=== PATIENT | female | born 1995 | race Two or more races ===

== ENCOUNTER → 2016-09-21 | Outpatient (CLI) | payer MEDICAID | END | disposition home or self-care (01) | LOC: LAB 10:31 | PROVIDERS: ATTEND Specialist | DX: N39.0 Urinary tract infection, site not specified (principal); Z34.00 Encounter for supervision of normal first pregnancy, unspecified trimester; O74.6 Other complications of spinal and epidural anesthesia during labor and delivery | CPT/HCPCS: 86762; 87086; G0434 ==

== ENCOUNTER 2019-01-31 22:33 | Emergency (ER) | payer MEDICAID ==
[~2019-01-31] VITALS: Ht 170.2 cm; Wt 66.2 kg
[2019-01-31 22:40] VITALS: BP 130/58
== END 2019-02-01 01:30 | disposition left against medical advice (07) ==
LOC: ER 22:37
DX: M54.5 Low back pain (principal); R10.9 Unspecified abdominal pain; Z53.21 Procedure and treatment not carried out due to patient leaving prior to being seen by health care provider
CPT/HCPCS: 93005